=== PATIENT | female | born 1985 | race Two or more races ===

== ENCOUNTER 2025-03-26 19:40 | Emergency (ER) | payer MEDICAID, SELFPAY ==
[2025-03-26 19:41] VITALS: BMI 34.9
[2025-03-26 20:35] VITALS: BP 128/80; PULSE 91; RESP 18; TEMP 36.7; O2SAT 95
--- NOTE | 2025-03-26 20:47 | PD.EDSKIN ---
ED Skin Abcess FB-RME/HPI General Chief complaint: Skin/Abscess/Foreign Body Stated complaint: RIGHT FOOT WOUND BLEEDING Time Seen by Provider: 03/26/25 19:43 Arrival date/time: 03/26/25 19:40 This is a case of 39-year-old female with no medical history came in in the emergency room due to pain on the right plantar aspect secondary to callus for 1 week patient stated that it is infected now with bloody discharge no other symptoms noted no fever no chills persistence of the symptoms this patient decided to sought consult here in the emergency room Limitations: no limitations Related Data Previous Rx's ?Medication ?Instructions ?Recorded hydrocodone 5 mg-acetaminophen 325 See Rx Instructions .Route 12/12/17 mg tablet (Winters) .COMPLEX PRN pain #14 tabs sulfamethoxazole 800 1 tab PO BID Cellulitis #20 tabs 12/12/17 mg-trimethoprim 160 mg tablet (Bactrim DS) clindamycin HCl 300 mg capsule 300 mg PO TID #30 caps 03/26/25 ibuprofen 600 mg tablet 600 mg PO Q8H PRN pain #20 tabs 03/26/25 mupirocin 2 % topical ointment 1 applic topical TID #22 grams 03/26/25 Allergies Allergy/AdvReac Type Severity Reaction Status Date / Time No Known Allergies Allergy Verified 03/26/25 19:42 Review of Systems Review of Systems Systems Reviewed: All systems reviewed, normal except as documented Constitutional Constitutional: Reports system reviewed and no additional complaints, except as documented and Reports as per HPI Cardiovascular Cardiovascular: Reports system reviewed and no additional complaints, except as documented and Reports as per HPI Respiratory Respiratory: Reports system reviewed and no additional complaints, except as documented and Reports as per HPI Gastrointestinal Gastrointestinal: Reports system reviewed and no additional complaints, except as documented and Reports as per HPI Genitourinary Genitourinary: Reports system reviewed and no additional complaints, except as documented and Reports as per HPI Musculoskeletal Musculoskeletal: Reports other (Callus foot pain) Neurologic Neurologic: Reports system reviewed and no additional complaints, except as documented and Reports as per HPI Past Medical History Past Medical History CARDIAC: Negative Cardiac Disorders or Congestive Heart Failure RESPIRATORY: Positive Asthma; Negative Chronic Obstructive Pulmonary Disease (COPD) GENITOURINARY: Negative Renal Disease MUSCULOSKELETAL: Positive Musculoskeletal Disorders (Low back pain) ENDOCRINE: Negative Diabetes Mellitus Type 1 or Diabetes Mellitus Type 2 HEMATOLOGIC: Negative Sickle Cell Disease Social History SMOKING STATUS: Never smoker ED Exam General Limitations: Present no limitations General appearance: Present alert, in no apparent distress and other (Patient is awake alert oriented not in distress nontoxic looking well-hydrated well-nourished) Head Head exam: Present atraumatic Eye Eye exam: Present normal appearance, PERRL and EOMI ENT ENT exam: Present normal exam, normal oropharynx and mucous membranes moist Neck Neck exam: Present normal inspection, full ROM and trachea midline; Absent tenderness, meningismus or lymphadenopathy Chest Chest inspection: Present normal inspection and symmetric chest wall rise; Absent tenderness Respiratory Respiratory exam: Present normal lung sounds bilaterally; Absent respiratory distress, wheezes, stridor, accessory muscle use or prolonged expiratory phase Cardiovascular Cardiovascular exam: Present regular rate, normal rhythm and normal heart sounds; Absent bradycardia, tachycardia, irregular rhythm, systolic murmur or diastolic murmur Abdominal Exam Abdominal exam: Present soft and normal bowel sounds Extremities Exam Extremities exam: Present normal inspection and full ROM Expanded Lower Extremity Exam Foot/toe exam: Present full ROM and other (Noted a mild to moderate tenderness on the plantar aspect right foot noted a approximately 1 cm callus no abscess no cellulitis but tender to touch with discharge); Absent tenderness, swelling, abrasion, laceration, ecchymosis, deformity, crepitus, dislocation, erythema, amputation, puncture wound, foreign body, calcaneal tenderness, tenderness at base of 5th metatarsal, nail avulsion or subungual hematoma Back Exam Back exam: Present normal inspection and full ROM Neurological Exam Neurological exam: Present alert, oriented X3 and CN II-XII intact Psychiatric Psychiatric exam: Present normal affect and normal mood Skin Skin exam: Present warm, dry, intact, normal color and other (Noted a callus on the right plantar aspect tender to touch with some redness and discharge but no cellulitis no abscess) Course Quality Measures none Vital Signs Vital signs: Vital Signs Temperature 98.1 F 03/26/25 20:35 Pulse Rate 91 03/26/25 20:35 Respiratory Rate 18 03/26/25 20:35 Blood Pressure 128/80 03/26/25 20:35 Pulse Oximetry (%) 95 03/26/25 20:35 Oxygen Delivery Method Room Air 03/26/25 20:35 Oxygen saturation is 95% in room air normal Skin / Abscess / Foreign Body MDM Narrative MDM Narrative:: This is a case of 39-year-old female with no medical history came in in the emergency room due to pain on the right plantar aspect secondary to callus for 1 week patient stated that it is infected now with bloody discharge no other symptoms noted no fever no chills persistence of the symptoms this patient decided to sought consult here in the emergency room physical examination patient is awake alert oriented not in distress nontoxic looking well-hydrated well-nourished noted mild to moderate tenderness on the plantar aspect on the right foot secondary to the callus approximately 1 cm which is infected no abscess no cellulitis based on my physical examination patient will be discharged home with antibiotic for infected callus he was advised to see a podiatry for further evaluation and footcare for any worsening symptoms she will return in the emergency room immediately or call 911 and she will see his PCP in 2 days for reevaluation wound care is also done here in the emergency room and started on antibiotic patient tetanus shot is up-to-date Patient was discharged with comfortable condition walking with stable gait. Patient verbalized no further complains explained diagnosis and answered patient question. Patient is comfortable with the proposed management plan including the need to follow up with his/her primary care physician and any specialist if applicable Discussed patient for any urgent condition or worsening sx, He/She needed to go to emergency room immediately or call 911. Patient acknowledge the responsibility to follow up as instructed and to monitor her/his symptoms. For any persistence of the symptoms for more than 3-5 days return precaution advised. Discussed the result of the test and was given printed discharge instruction Patient data External records reviewed:: [facility] previous records Clinical information provided by:: patient Social determinants that could affect healthcare access:: none Patient has the following chronic illnesses:: None How is presenting disease/condition affected by chronic disease/condition?: no chronic disease Evaluation data The following diagnostics were reviewed and interpreted by me:: other (specify) Lab and/or radiology exams considered but not ordered:: None Interpretation Summary: None Medications / Prescriptions Medications or Prescriptions considered but not ordered:: Given Medication administrations:: Given Consultations Consultation(s) initiated? (list below): No Diagnosis Skin/Abscess Differential Diagnosis: abscess of skin or subcutaneous tissue, cellulitis and other (callus) Most likely diagnosis given after review of the tests above:: Infected callus Admission Indicated Admission indicated?: not indicated Explain why admission is indicated or not indicated:: Not indicated Admission Request Was there a request for admission?: No Admission Attestation Admission request attestation: Not indicated Disposition Plan Disposition Plan: Discharge Discharge Attestation Discharge Attestation: The patient and all family members were given an opportunity to ask questions and understood the discharge instructions. Discharge instructions specifically effects, indications for sooner follow up or return to the emergency department, and the expected course of current diagnosis. Patient condition: Stable Discharge Plan Plan Patient Disposition: HOME (Self Care) Patient condition on transfer: Stable Prescriptions/Referrals Prescriptions/Med Rec: New clindamycin HCl 300 mg capsule 300 mg PO TID Qty: 30 0RF mupirocin 2 % ointment 1 applic topical TID Qty: 22 0RF ibuprofen 600 mg tablet 600 mg PO Q8H PRN (Reason: pain) Qty: 20 0RF No Action hydrocodone-acetaminophen [Winters] 5-325 mg tablet See Rx Instructions .ROUTE .COMPLEX MDD 8 PRN (Reason: pain) Qty: 14 0RF Rx Instructions: 1-2 tablets every 4-6 hours as needed for pain sulfamethoxazole-trimethoprim [Bactrim DS] 800-160 mg tablet 1 tab PO BID Qty: 20 0RF Referrals: Shamar Moyer MD [Primary Care Provider] - In 1 week Problem List Clinical Impression: Callus of foot, Infected wound Patient/Caregiver Discharge Instructions Education Materials: What Are Corns and Calluses?, Treating Corns and Calluses, ED Wound Check (Infection) Additional Instructions: Follow-up with your primary care physician in 2 days for reevaluation and to be referred to podiatry for further evaluation and treatment and footcare worsening symptoms or any emergent concerns such as redness swelling discharge from the wound call 911 or go to the nearest emergency room use Eucerin cream or Aquaphor to moisturize your right foot is advised take your medication as directed finish the course of antibiotic keep the wound clean and dry Print Language: Kiswahili Stand Alone Forms: Ivonne Award Info., Patient Portal Info Letter PA/VIDEO GAME CREATOR Supervising Physician PA/VIDEO GAME CREATOR Supervising Physician: Dr. Herbert Whelan
== END 2025-03-26 21:03 | disposition home or self-care (01) ==
PROVIDERS: Emergency Provider Emergency Medicine; PCP Internal Medicine
DX: L84 Corns and callosities (principal)
CPT/HCPCS: 99281